=== PATIENT | male | born 1965 | race Caucasian/White ===

== ENCOUNTER 2024-11-19 05:06 | Emergency (ER) | payer BC, SELFPAY ==
[2024-11-19 05:07] VITALS: BP 148/94; PULSE 80; RESP 16; TEMP 36.4; O2SAT 97; BMI 27.1
[2024-11-19 05:10] VITALS: TEMP 36.4; O2SAT 98
[2024-11-19] MEDS: Lidocaine 1% (20 ml mdv) 20 ML Vial 5 ML INFILT (05:21)
--- NOTE | 2024-11-19 05:48 | CT_ITS ---
EXAM: CT HEAD WITHOUT INTRAVENOUS CONTRAST CLINICAL INDICATION: trauma TECHNIQUE: Multiple axial images were obtained of the head without intravenous contrast. This CT exam was performed using one or more of the following dose reduction techniques: automated exposure control, adjustment of the mA and/or kV according to patient size, and/or use of iterative reconstruction technique. RADIATION DOSE: CTDIvol = 44.99 mGy, DLP = 846.73 mGy-cm COMPARISON: No relevant prior studies available. FINDINGS: BRAIN AND EXTRA-AXIAL SPACES: Unremarkable. No intra- or extra-axial hemorrhage. No evidence of acute infarct. No intracranial mass or mass effect. There is preservation of the hollins/white matter interface. Posterior fossa structures are unremarkable. Ventricles are appropriate for age. No hydrocephalus. Basal cisterns are patent. BONES/JOINTS: Comminuted nasal bone fracture. No discrete lytic or blastic abnormalities. SOFT TISSUES: Right frontal scalp and nasal soft tissue swelling. SINUSES: Bilateral ethmoid and maxillary sinus mucosal thickening. MASTOID AIR CELLS: Unremarkable. Clear. ORBITS: Visualized globes, extraocular muscles, optic nerves and retrobulbar fat appear unremarkable. CT/Brain/Head without Contrast IMPRESSION: 1. Comminuted nasal bone fracture. 2. No acute intracranial injuries. Electronically Signed: Kuldip Stephens MD at 6:38 EST ,
--- NOTE | 2024-11-19 05:48 | CT_ITS ---
EXAM: CT MAXILLOFACIAL WITHOUT INTRAVENOUS CONTRAST CLINICAL INDICATION: trauma TECHNIQUE: Helically acquired images were obtained of the face without intravenous contrast. This CT exam was performed using one or more of the following dose reduction techniques: automated exposure control, adjustment of the mA and/or kV according to patient size, and/or use of iterative reconstruction technique. RADIATION DOSE: CTDIvol = 29.38 mGy, DLP = 598.88 mGy-cm COMPARISON: No relevant prior studies available. FINDINGS: BONES/JOINTS: Comminuted nasal bone fracture. No discrete lytic or blastic abnormalities. SOFT TISSUES: Right frontal scalp and nasal soft tissue swelling. No discrete fluid collections. ORBITS: Unremarkable. Both globes are unremarkable. Extraocular muscles are normal. Retrobulbar fat appears unremarkable. SINUSES: Bilateral ethmoid and maxillary sinus mucosal thickening. MASTOID AIR CELLS: Unremarkable as visualized. Clear. CT/Sinus/Facial Bone IMPRESSION: Comminuted nasal bone fracture. Electronically Signed: Kuldip Stephens MD at 6:39 EST ,
--- NOTE | 2024-11-19 05:52 | RAD_ITS ---
EXAM: XR CHEST, 2 VIEWS CLINICAL INDICATION: cough TECHNIQUE: Frontal and lateral views of the chest. COMPARISON: No relevant prior studies available. FINDINGS: LUNGS AND PLEURAL SPACES: Unremarkable. No consolidation or edema. No pneumothorax. No effusion. HEART: Unremarkable. Cardiac silhouette not enlarged. MEDIASTINUM: Central airways and mediastinal contour are unremarkable. BONES/JOINTS: Unremarkable. No acute fracture. SOFT TISSUES: Unremarkable. RAD/Chest PA and Lateral IMPRESSION: No radiographic evidence of acute cardiopulmonary disease. Electronically Signed: Kuldip Stephens MD at 6:39 EST ,
[2024-11-19 07:04] VITALS: BP 135/89; PULSE 77; RESP 18; TEMP 36.8; O2SAT 96
--- NOTE | 2024-11-19 07:24 | EX.ED.DYSGE1 ---
HPI History of Present Illness Chief Complaint: Fall Informant: patient and spouse/S.O. Narrative Narrative: 59-year-old male presenting to the emergency room following a syncopal episode. Patient states that for about a week he has had a cough. States is different than his normal smoker's cough and he has had at times felt himself wheezing. Tonight he got up to use the bathroom on the way back to the bedroom was coughing forcefully and passed out. He states he believes he either struck the door the ground causing injury to his nose forehead and lip. Patient denies any fever. No history of COPD. After the fall he had pain on the right side of his chest along the costochondral border of the mid anterior rib. It is tender to palpation. He does not feel a pop when he takes of breath now. He denies any shortness of breath at the current time. [facility] Medical History Umbilical hernia Cauliflower ear, left ear Home Medications ?Medication ?Instructions ?Recorded ?Last Taken ?Type albuterol sulfate 90 mcg/actuation 2 puff inhalation Q4H PRN PRN 11/19/24 Unknown Rx aerosol inhaler (Ventolin HFA) Wheezing ##1 azithromycin 250 mg tablet See Rx Instructions PO .COMPLEX #6 11/19/24 Unknown Rx (Zithromax Z-Thor) tabs prednisone 20 mg tablet 60 mg (3 x 20 mg) PO DAILY #15 11/19/24 Unknown Rx TABLETS Allergy/AdvReac Type Severity Reaction Status Date / Time Penicillins AdvReac Unknown Other Verified 11/19/24 05:07 Surgical History Hx of colonoscopy Social History Smoking Status: Current every day smoker tobacco type: cigarettes ROS ROS ED Constitutional Constitutional ED: Denies chills, fever(s) or weight loss Eyes Eyes: Denies change in vision or diplopia ENT ENT ED: Denies ear pain, rhinorrhea or sore throat Cardiovascular Cardiovascular: Reports other Details: Syncope ; Denies chest pain, orthopnea, palpitations or racing heartbeat Respiratory/Chest Respiratory/Chest: Reports cough; Denies dyspnea or orthopnea Gastrointestinal Gastrointestinal: Denies abdominal pain, diarrhea, nausea or vomiting Genitourinary Genitourinary ED: Denies dysuria, hematuria or urinary frequency Musculoskeletal Musculoskeletal: Denies arthralgias, back pain, myalgias or neck pain Integumentary Reports other Details: Facial lacerations ; Denies abscess or rash Neurologic Neurologic: Denies headache(s) or weakness Psychiatric Psychiatric: Denies anxiety, depression, suicidal ideation or suicidal thoughts Endocrine Endocrinology: Denies polydipsia, polyphagia or polyuria Allergic/Immunologic Allergic/Immunologic ED: Denies mouth swelling, tongue swelling or urticaria EXAM Physical Exam Const Vital Signs: 11/19/24 05:07 11/19/24 05:10 11/19/24 07:04 Temperature 97.5 F L 97.5 F L 98.2 F Temperature Source Oral Pulse Rate 80 77 Respiratory Rate 16 18 Respiratory Effort Normal Non-Labored Respiratory Depth Normal Respiratory Pattern Normal Blood Pressure 148/94 H 135/89 H Blood Pressure Mean 112 104 Pulse Ox 97 98 96 Oxygen Delivery Method Room Air Room Air Positive well nourished and well developed General Appearance ED: well developed and NAD HEENT Reports normocephalic and moist mucous membranes HEENT Narrative: 3 cm irregular laceration to the right forehead just above the eyebrow. He is able to wrinkle his forehead. There is nasal swelling and ecchymosis. No obvious septal hematoma. There is a 1 cm linear laceration of the bridge of the nose that is well-approximated with no bleeding. There is no malocclusion and no pain with opening of the mandible. He has a 1.5 cm lip laceration (lower). No dental trauma is noted. Eyes PERRL and EOMs intact bilaterally Neck no lymphadenopathy, supple and no JVD Chest Wall Chest Narrative: Tender to palpation right costochondral border around ribs 6 7. Very tender to palpation. I do not appreciate any palpable separation or deformity to the chest wall. Resp normal respiratory effort and clear to auscultation bilaterally Cardio regular rate, regular rhythm and no murmurs GI normal to inspection, nondistended, normoactive bowel sounds and non-tender Palpation: soft Back/Spine no CVA tenderness and normal ROM Extremity normal to inspection General Extremety ED: Negative for edema General Extremity: Negative for edema Neuro oriented x3 and CN's II-XII intact bilaterally Sensorium / Orientation: alert Motor Exam: strength 5/5 throughout Psych mental status grossly normal Mood & Affect: Negative for depressed or tearful Skin no rashes or lesions noted and no wounds MDM MDM MDM Narrative Medical decision making narrative: Differential diagnosis includes but not limited to facial fracture skull fracture intracranial hemorrhage cardiogenic syncope cough syncope lacerations abrasions neurovascular injury CT of the brain did not demonstrate any obvious skull fracture or intracranial hemorrhage. CT of the facial bones demonstrated a comminuted nasal bone fracture. My independent interpretation of the chest x-ray is no acute infiltrates no obvious rib fracture or pneumothorax. Wounds were washed with Shur-Clens irrigated and explored. The forehead laceration was locally anesthetized using 1% lidocaine closed using 7 simple interrupted 4-0 Ethilon sutures. The nasal laceration was closed with Dermabond. The lower lip laceration which did not cross vermilion border was closed using 3 simple erupted 5-0 rapid Vicryl stitches. Mild debridement of some nonviable skin was made. I think the patient most likely had cough syncope followed by the fall and trauma. Wound cares discussed with the patient including when the stitches should be removed. I believe the right rib pain is probably a mild costochondral separation. He most likely has an acute bronchitis with bronchospasm which we will treat with azithromycin and albuterol and prednisone. Smoking cessation was encouraged. History & Record Review Discussion w/independent historian: Patient and Significant other Radiography Diagnostic Testing: Clinical Impression(s) from Imaging Studies Brain CT 11/19/24 05:48 IMPRESSION: 1. Comminuted nasal bone fracture. 2. No acute intracranial injuries. Electronically Signed: Kuldip Stephens MD at 6:38 EST , Facial/Sinus 11/19/24 05:48 IMPRESSION: Comminuted nasal bone fracture. Electronically Signed: Kuldip Stephens MD at 6:39 EST , Chest X-Ray 11/19/24 05:52 IMPRESSION: No radiographic evidence of acute cardiopulmonary disease. Electronically Signed: Kuldip Stephens MD at 6:39 EST , Discharge Plan Triage Chief Complaint: Fall ED Provider: William Amaya Dx/Rx/DC Orders Clinical Impression: Facial laceration, Laceration of lip, Fracture of nasal bone, Acute bronchitis with bronchospasm, Cough syncope Instructions: ED Bronchitis with Wheezing (Adult), ED Nose Fracture, with X-Ray, ED Laceration, Lip or Mouth Prescriptions: New albuterol sulfate [Ventolin HFA] 90 mcg/actuation HFA aerosol inhaler 2 puff inhalation Q4H PRN PRN (Reason: Wheezing) Qty: 1 0RF Rx Instructions: with spacer azithromycin [Zithromax Z-Thor] 250 mg tablet See Rx Instructions .ROUTE .COMPLEX Qty: 6 0RF Rx Instructions: For 250 mg dose pack: take 500 mg today (day 1), then 250 mg for 4 days (days 2-5) prednisone 20 mg tablet 60 mg PO DAILY Qty: 15 0RF Primary Care Provider: Bethel French NP Referrals: Bethel French [employer], [employer] [Primary Care Provider] - 7 Days for suture removal (Sutures need to be removed in 5 to 7 days) Print Language: Citizen [place] Disposition Disposition: Home, Self Care Discharge Date/Time: 11/19/24 07:05
== END 2024-11-19 07:05 | disposition home or self-care (01) ==
PROVIDERS: Emergency Provider Emergency Medicine; PCP Nurse Practitioner Primary Care; Visit Provider Emergency Medicine
DX: S02.2XXA Fracture of nasal bones, initial encounter for closed fracture (principal); S01.21XA Laceration without foreign body of nose, initial encounter; S01.511A Laceration without foreign body of lip, initial encounter; S01.81XA Laceration without foreign body of other part of head, initial encounter; W18.39XA Other fall on same level, initial encounter; J20.9 Acute bronchitis, unspecified; R05.4 Cough syncope; F17.210 Nicotine dependence, cigarettes, uncomplicated
CPT/HCPCS: 12013; 70450; 70486; 71046; 99284